=== PATIENT | male | born 1965 | race American Indian/Alaskan Native ===

== ENCOUNTER 2018-01-10 17:32 | Emergency (ER) | payer SELFPAY ==
[2018-01-10 18:26] LABS: Basophils % (Auto) 0.4 % (0.0-1.8); Eosinophils % (Auto) 0.2 % (0.0-4.3); Hematocrit 44.4 % (35.5-45.6); Hemoglobin 15.3 gm/dl (11.8-15.2); Lymphocytes % (Auto) 22.2 % (13.4-35.0); Mean Corpuscular HGB Conc 35 % (32-34); Mean Corpuscular Hemoglobin 33 pg (28-32); Mean Corpuscular Volume 97 fl (84-94); Monocytes # (Auto) 0.6 K/mm3 (0.0-0.8); Monocytes % (Auto) 6.7 % (0.0-7.3); Platelet Count 235 K/mm3 (140-440); Red Blood Count 4.59 M/mm3 (3.65-5.03); Red Cell Distribution Width 13.2 % (13.2-15.2)
[2018-01-10 18:45] LABS: BUN/Creatinine Ratio 8; Blood Urea Nitrogen 10 mg/dL (9-20); Calcium 9.7 mg/dL (8.4-10.2); Hemolysis Index 8
[2018-01-10 18:59] LABS: Bilirubin,Urine NEG (Negative); Blood,Urine NEG (Negative); Color,Urine Amber (Yellow); Hyaline Casts,Urine 33 /LPF; Mucus,Urine 3+ /HPF
[2018-01-10 19:00] LABS: Amphetamine Screen,Urine PRESUMPTIVE NEGATIVE; Benzodiazepines Screen,Urine PRESUMPTIVE NEGATIVE; Methadone Screen,Urine PRESUMPTIVE NEGATIVE
[2018-01-10 19:16] LABS: Cannabinoid Screen,Urine PRESUMPTIVE POSITIVE; Cocaine Screen,Urine PRESUMPTIVE POSITIVE; Opiate Screen,Urine PRESUMPTIVE POSITIVE
--- NOTE | 2018-01-10 23:28 | Emergency Department Report ---
HPI - General Chief Complaint: Psych Time Seen by Provider: 01/10/18 21:29 - HPI HPI: 52-year-old -Cam[place] male presents to the emergency department with complaint of feeling depressed after allegedly relapsing by snorting heroin. Patient also admits to using a small amount of cocaine but says that is not usually his drug of choice. He denies any current intoxication. He is looking for rehabilitation and/or detox. He says that he feels that if he does not get help that he will end up dying from his drug use and says "I want to get my life back together." The patient does endorse suicidal ideations. While he does not have any one specific plan, he has verbalized the idea of overdosing on drugs or jumping in front of a train. He denies any homicidal ideations or any hallucinations. ED Past Medical Hx - Past Medical History Previous Medical History?: Yes Hx Liver Disease: Yes (hep C) - Surgical History Past Surgical History?: Yes Additional Surgical History: Knee surgery, right femur surgery, liver biopsy, hemorrhoid surgery (summer) - Social History Smoking Status: Current Every Day Smoker Substance Use Type: Heroin, Marijuana - Medications Home Medications: Home Medications Medication Instructions Recorded Confirmed Last Taken Type Cyclobenzaprine [Flexeril 10mg] 10 mg PO TID PRN #14 tablet 02/12/14 Unknown Rx HYDROcodone/APAP 5-325 [[place] 1 - 2 each PO Q6HR PRN #20 tablet 02/12/14 Unknown Rx 5/325] Nitrofurantoin Toole/M-Cryst 100 mg PO BID #14 capsule 01/11/18 Unknown Rx [Macrobid CAP] ED Review of Systems ROS: Stated complaint: WITHDRAWL/SUICIDAL Other details as noted in HPI Comment: All other systems reviewed and negative Constitutional: denies: chills, fever Eyes: denies: eye pain, eye discharge, vision change ENT: denies: ear pain, throat pain Respiratory: denies: cough, shortness of breath, wheezing Cardiovascular: denies: chest pain, palpitations Gastrointestinal: denies: abdominal pain, nausea, diarrhea Genitourinary: denies: urgency, dysuria Musculoskeletal: denies: back pain, joint swelling, arthralgia Skin: denies: rash, lesions Neurological: denies: headache, weakness, paresthesias Psychiatric: depression. denies: auditory hallucinations, visual hallucinations Physical Exam - Physical Exam Vital Signs: Vital Signs 01/10/18 17:47 Temperature 99.3 F Pulse Rate 102 H Respiratory 16 Rate Blood Pressure 116/72 Physical Exam: GENERAL: The patient is well-developed well-nourished. HENT: Normocephalic. Atraumatic. Patient has moist mucous membranes. EYES: Extraocular motions are intact. Pupils equal reactive to light bilaterally. NECK: Supple. Trachea is midline. CHEST/LUNGS: Clear to auscultation. There is no respiratory distress noted. HEART/CARDIOVASCULAR: Regular. There is no tachycardia. There is no murmur. ABDOMEN: Abdomen is soft, nontender. Patient has normal bowel sounds. There is no abdominal distention. SKIN: Skin is warm and dry. NEURO: The patient is awake, alert, and oriented. The patient is cooperative. The patient has no focal neurologic deficits. The patient has normal speech. MUSCULOSKELETAL: There is no tenderness or deformity. There is no limitation range of motion. There is no evidence of acute injury. ED Course Vital Signs 01/10/18 17:47 Temperature 99.3 F Pulse Rate 102 H Respiratory 16 Rate Blood Pressure 116/72 ED Medical Decision Making - Lab Data Result diagrams: 01/10/18 18:10 01/10/18 18:10 - Medical Decision Making Patient presents with a complaint of some depression secondary to his illicit drug use that is causing him to have some suicidal ideations. He lasted heroin and cocaine last night and says that he has a history of snorting heroin. Patient is looking for some detox and rehabilitation. He does endorse the suicidal ideations. He previously mentioned some plans as to how he would harm himself but at the current time he just reiterates that he has them. In the emergency department the patient is calm and appropriate. Labs are mostly unremarkable except for a urine drug screen that is positive for opiates and cocaine and a urinalysis that shows a urinary tract infection. Patient will be started on Macrobid. Vital signs stable throughout his ED course. Patient has been made a 1013 secondary to the suicidal ideations. He has been seen by the psych assessment team who agrees with the plan for a 1013 and inpatient psychiatric treatment. Patient is medically cleared for psychiatric placement. - Differential Diagnosis substance abuse, withdrawal, UTI, depression, bipolar disorder Critical Care Time: No Critical care attestation.: If time is entered above; I have spent that time in minutes in the direct care of this critically ill patient, excluding procedure time. ED Disposition Clinical Impression: Suicidal ideations, Polysubstance abuse UTI (urinary tract infection) Qualifiers: Urinary tract infection type: acute cystitis Hematuria presence: without hematuria Qualified Code(s): N30.00 - Acute cystitis without hematuria Opiate dependence Qualifiers: Substance use status: uncomplicated Qualified Code(s): F11.20 - Opioid dependence, uncomplicated Disposition: DC/TX-65 PSY HOSP/PSY UNIT Is pt being admited?: No Condition: Stable Instructions: Suicide Prevention for Adults (ED), Urinary Tract Infection in Men (ED), Narcotic Abuse (ED) Prescriptions: Nitrofurantoin Toole/M-Cryst [Macrobid CAP] 100 mg PO BID #14 capsule Referrals: PRIMARY CARE, [Primary Care Provider] - 3-5 Days Time of Disposition: 01:11
[2018-01-11] MEDS: MACROBID PO SCH ×3 (04:55→22:32)
[2018-01-11] MEDS ORDERED: ZOFRAN ODT PO PRN (11:42)
--- NOTE | 2018-01-11 15:36 | Consultation ---
History of Present Illness - Reason for Consult Consult date: 01/11/18 Reason for consult: Mental Health Evaluation Requesting physician: LENNY MOROCHO - Chief Complaint Chief complaint: I am depressed" - History of Present Psychiatric Illness 52-year-old -Italian male presents to the emergency department with complaint of feeling depressed after allegedly relapsing by snorting heroin. Today the patient is calm and cooperative, but withdrawn during the assessment. He stated that he need to stop using "drugs" and get his life together. He stated being suicidal for several days since binging on heroin and other recreational drugs. He stated that he last used heroin yesterday. He stated that he has a hx of depression and take Zoloft. He admitted being noncompliant with taking Zoloft when asked. He stated that he have been to several rehab services, but relapse most of the time. He endorses SI's, but will not confirm or deny a suicide plan. He rate his depression 6/10, with 10 being the worse. He denies erratic sleep, a poor appetite, and manice episodes in the past. He denies alcohol consumption (etoh), Medications and Allergies Allergies Allergy/AdvReac Type Severity Reaction Status Date / Time No Known Allergies Allergy Unverified 02/12/14 14:01 Home Medications Medication Instructions Recorded Confirmed Last Taken Type No Known Home Medications [No 01/11/18 01/11/18 Unknown History Reported Home Medications] Active Meds: Active Medications Nitrofurantoin Macrocrystals (Macrobid) 100 mg PO BID RAMU Last Admin: 01/11/18 10:00 Dose: 100 mg Ondansetron HCl (Zofran Odt) 4 mg PO Q6HR PRN PRN Reason: Nausea Last Admin: 01/11/18 12:06 Dose: 4 mg Mental Status Exam - Vital signs Last Vital Signs Temp 97.9 F 01/11/18 08:00 Pulse 64 01/11/18 08:00 Resp 20 01/11/18 08:00 BP 148/81 01/11/18 08:00 Pulse Ox 97 01/11/18 08:00 - Exam Narrative exam: MSE: Appearance: calm, cooperative Behavior: regular eye contact Speech: regular rate and tone Mood: "depressed" withdrawn Affect: flat Thought Process: circumstantial Thought Content: denies HI's and AVH's Motor Activity: lying in bed Cognition: A/O x 3 Insight: variable Judgment: poor Results Result Diagrams: 01/10/18 18:10 01/10/18 18:10 Abnormal lab results 01/10/18 01/10/18 01/10/18 Range/Units 18:10 18:10 18:10 Hgb 15.3 H (11.8-15.2) gm/dl MCV 97 H (84-94) fl MCH 33 H (28-32) pg MCHC 35 H (32-34) % Seg Neutrophils % 70.5 H (40.0-70.0) % Urine WBC (Auto) (0.0-6.0) /HPF Salicylates < 0.3 L (2.8-20.0) mg/dL Acetaminophen < 5.0 L (10.0-30.0) ug/mL 01/10/18 Range/Units 18:12 Hgb (11.8-15.2) gm/dl MCV (84-94) fl MCH (28-32) pg MCHC (32-34) % Seg Neutrophils % (40.0-70.0) % Urine WBC (Auto) 36.0 H (0.0-6.0) /HPF Salicylates (2.8-20.0) mg/dL Acetaminophen (10.0-30.0) ug/mL All other labs normal. Assessment and Plan Assessment and plan: Impression: MDD, Severe type. Substance Use DO (cocaine). Cannabis Use DO. Opioid Use DO. Today the patient is calm and cooperative, but withdrawn during the assessment. The patient complains of nausea (opioid withdrawals) DDx: R/O Bipolar DO, R/O Substance Induced Mood DO Recommendation/Plan: Continue 1013 with placement to inpatient psy services. Start Zoloft 50 mg PO daily for depression. Discussed possible suicidality/ medication induced darien with patient reference Zoloft. Discussed the importance to abstain from recreational drug use. Continue to monitor for opioid withdrawals.
[2018-01-11] MEDS ORDERED: TYLENOL PO ONE (19:40)
[2018-01-11] MEDS ORDERED: TYLENOL ONE (19:43)
[2018-01-11] MEDS: ZOLOFT PO SCH (19:50)
[2018-01-12] MEDS: MACROBID PO SCH ×2 (12:05→23:35)
[2018-01-12] MEDS: ZOLOFT PO SCH (12:06)
--- NOTE | 2018-01-12 15:54 | Progress Note ---
Subjective - Reason for Consult Consult date: 01/12/18 Reason for consult: Psychiatric Follow-up Evaluation - Chief Complaint Chief complaint: " I feel great" Patient is a 52-year-old -Bulgar[place] male who presents to the emergency department with complaint of feeling depressed after allegedly relapsing by snorting heroin. Today, patient is calm and cooperative during the assessment. He endorses depressed mood related to recent relapse. He reports good sleep and appetite. Patient is medication compliant. He denies SI/HI, A/VH, and delusions. Mental Status Exam - Vital signs Last Vital Signs Temp 98.9 F 01/12/18 10:35 Pulse 60 01/12/18 10:35 Resp 18 01/12/18 10:35 BP 134/84 01/12/18 10:35 Pulse Ox 97 01/12/18 10:35 - Exam Narrative exam: Mental Status Exam General Appearance: Causally Dressed-hospital gown Eye Contact: Intermittent Orientation: Alert and oriented x 4 ( person, place, time, and situation) Attitude/Behavior: Cooperative but somewhat guarded Sensorium: Distracted Psychomotor & Musculoskeletal Activity: Ambulatory Mood: "Great." Per provider depressed, anxious Affect: Appropriate Speech/Language: Normal rate and tone Thought Processes: Organized, circumstantial Thought Content: Reality oriented; patient denies delusions Perception: WNL-patient denies A/V/T hallucinations Concentration/Attention: Impaired Suicidal Ideations/Plan: Patient denies Homicidal Ideations/Plan: Patient denies Judgment: Variable Insight: Variable Assessment and Plan Impression: MDD, Severe type. Substance Use DO (cocaine). Cannabis Use DO. Opioid Use DO. Today the patient is calm and cooperative, but guarded during the assessment. He denies SI/HI's, A/VH's, delusions, withdrawal symptoms, and cravings. DDx: R/O Bipolar DO, R/O Substance Induced Mood DO Recommendation/Plan: 1. Continue 1013 with placement to inpatient psychiatric services. 2. Continue Zoloft 50 mg PO daily for depression. Discussed possible suicidality/medication induced darien with patient reference Zoloft. Discussed the importance to abstain from recreational drug use. Continue to monitor for opioid withdrawals. 3. Will continue to monitor mood, sleep, appetite, compliance, and side effects.
[2018-01-13] MEDS: ZOLOFT PO SCH (10:49)
[2018-01-13] MEDS: MACROBID PO SCH (10:49)
--- NOTE | 2018-01-13 11:14 | Progress Note ---
Subjective - Reason for Consult Consult date: 01/13/18 Reason for consult: Psychiatry Follow-up - Chief Complaint Chief complaint: I've done a lot of reflecting" 52-year-old -Guine[place] male presents to the emergency department with complaint of feeling depressed after allegedly relapsing by snorting heroin. Today the patient is calm and cooperative during the assessment. He stated reflecting about his life. He stated that he must make better decisions. He stated that he plan to follow up with outpatient psy/rehab services when discharged. He denies SI/HI's and AVH's. He denies any side effects of his medication. Mental Status Exam - Vital signs Last Vital Signs Temp 99.4 F 01/12/18 20:00 Pulse 78 01/12/18 20:00 Resp 18 01/12/18 20:00 BP 144/96 01/12/18 20:00 Pulse Ox 98 01/12/18 20:00 - Exam Narrative exam: MSE: Appearance: calm, cooperative Behavior: regular eye contact Speech: regular rate and tone Mood: "much better" Affect: congruent to mood Thought Process: linear Thought Content: denies SI/HI's and AVH's Motor Activity: lying in bed Cognition: A/O x 3 Insight: appropriate Judgment: appropriate Assessment and Plan Impression: MDD, Severe type. Substance Use DO (cocaine). Cannabis Use DO. Opioid Use DO. Today the patient is calm and cooperative during the assessment. The patient is no threat to self. The patient denies withdrawals (opioid). DDx: R/O Bipolar DO, R/O Substance Induced Mood DO Recommendation/Plan: Rescind 1013. Continue Zoloft 50 mg PO daily for depression. Discussed possible suicidality/medication induced darien with patient reference Zoloft. Discussed the importance to abstain from recreational drug use. The patient can follow up with [facility] for outpatient psy/ rehab services.
[2018-01-13 11:17] VITALS: BP 144/92
--- NOTE | 2018-01-13 12:57 | Event Note ---
Date: 01/13/18 The patient's 1013 has been discontinued by the psychiatry team. He endorses no acute medical complaints at this time. He is afebrile with reassuring vital signs and is clinically sober at this time. He will be given a 10 day refill on Zoloft. He is instructed to follow up with outpatient mental health resources. Vital Signs 01/10/18 01/11/18 01/11/18 17:47 08:00 20:31 Temperature 99.3 F 97.9 F 99.5 F Pulse Rate 102 H 64 67 Respiratory 16 20 11 L Rate Blood Pressure 116/72 Blood Pressure 148/81 143/92 [Right] O2 Sat by Pulse 97 97 Oximetry 01/12/18 01/12/18 01/13/18 10:35 20:00 10:00 Temperature 98.9 F 99.4 F 97.3 F L Pulse Rate 60 78 84 Respiratory 18 18 20 Rate Blood Pressure Blood Pressure 134/84 144/96 144/92 [Right] O2 Sat by Pulse 97 98 97 Oximetry Lab Results 01/10/18 01/10/18 01/10/18 Range/Units 18:10 18:10 18:10 WBC (4.5-11.0) K/mm3 RBC (3.65-5.03) M/mm3 Hgb (11.8-15.2) gm/dl Hct (35.5-45.6) % MCV (84-94) fl MCH (28-32) pg MCHC (32-34) % RDW (13.2-15.2) % Plt Count (140-440) K/mm3 Lymph % (Auto) (13.4-35.0) % [place] % (Auto) (0.0-7.3) % Eos % (Auto) (0.0-4.3) % Baso % (Auto) (0.0-1.8) % Lymph # (1.2-5.4) K/mm3 [place] # (0.0-0.8) K/mm3 Eos # (0.0-0.4) K/mm3 Baso # (0.0-0.1) K/mm3 Seg Neutrophils % (40.0-70.0) % Seg Neutrophils # (1.8-7.7) K/mm3 Sodium 140 (137-145) mmol/L Potassium 3.9 (3.6-5.0) mmol/L Chloride 98.3 (98-107) mmol/L Carbon Dioxide 26 (22-30) mmol/L Anion Gap 20 mmol/L BUN 10 (9-20) mg/dL Creatinine 1.3 (0.8-1.5) mg/dL Estimated GFR > 60 ml/min BUN/Creatinine Ratio 8 % Glucose 85 (75-100) mg/dL Calcium 9.7 (8.4-10.2) mg/dL Urine Color (Yellow) Urine Turbidity (Clear) Urine pH (5.0-7.0) Ur Specific [place] (1.003-1.030) Urine Protein (Negative) mg/dL Urine Glucose (UA) (Negative) mg/dL Urine Ketones (Negative) mg/dL Urine Blood (Negative) Urine Nitrite (Negative) Urine Bilirubin (Negative) Urine Urobilinogen (<2.0) mg/dL Ur Leukocyte Esterase (Negative) Urine WBC (Auto) (0.0-6.0) /HPF Urine RBC (Auto) (0.0-6.0) /HPF U Epithel Cells (Auto) (0-13.0) /HPF Hyaline Casts /LPF Urine Mucus /HPF Salicylates < 0.3 L (2.8-20.0) mg/dL Urine Opiates Screen Urine Methadone Screen Acetaminophen < 5.0 L (10.0-30.0) ug/mL Ur Barbiturates Screen Ur Phencyclidine Scrn Ur Amphetamines Screen U Benzodiazepines Scrn Urine Cocaine Screen U Marijuana (THC) Screen Drugs of Abuse Note Plasma/Serum Alcohol (0-0.07) % 01/10/18 01/10/18 01/10/18 Range/Units 18:10 18:10 18:12 WBC 9.0 (4.5-11.0) K/mm3 RBC 4.59 (3.65-5.03) M/mm3 Hgb 15.3 H (11.8-15.2) gm/dl Hct 44.4 (35.5-45.6) % MCV 97 H (84-94) fl MCH 33 H (28-32) pg MCHC 35 H (32-34) % RDW 13.2 (13.2-15.2) % Plt Count 235 (140-440) K/mm3 Lymph % (Auto) 22.2 (13.4-35.0) % [place] % (Auto) 6.7 (0.0-7.3) % Eos % (Auto) 0.2 (0.0-4.3) % Baso % (Auto) 0.4 (0.0-1.8) % Lymph # 2.0 (1.2-5.4) K/mm3 [place] # 0.6 (0.0-0.8) K/mm3 Eos # 0.0 (0.0-0.4) K/mm3 Baso # 0.0 (0.0-0.1) K/mm3 Seg Neutrophils % 70.5 H (40.0-70.0) % Seg Neutrophils # 6.4 (1.8-7.7) K/mm3 Sodium (137-145) mmol/L Potassium (3.6-5.0) mmol/L Chloride (98-107) mmol/L Carbon Dioxide (22-30) mmol/L Anion Gap mmol/L BUN (9-20) mg/dL Creatinine (0.8-1.5) mg/dL Estimated GFR ml/min BUN/Creatinine Ratio % Glucose (75-100) mg/dL Calcium (8.4-10.2) mg/dL Urine Color [place] (Yellow) Urine Turbidity Cloudy (Clear) Urine pH 5.0 (5.0-7.0) Ur Specific [place] 1.026 (1.003-1.030) Urine Protein 100 mg/dl (Negative) mg/dL Urine Glucose (UA) Neg (Negative) mg/dL Urine Ketones Tr (Negative) mg/dL Urine Blood Neg (Negative) Urine Nitrite Neg (Negative) Urine Bilirubin Neg (Negative) Urine Urobilinogen 2.0 (<2.0) mg/dL Ur Leukocyte Esterase Mod (Negative) Urine WBC (Auto) 36.0 H (0.0-6.0) /HPF Urine RBC (Auto) 3.0 (0.0-6.0) /HPF U Epithel Cells (Auto) 2.0 (0-13.0) /HPF Hyaline Casts 33 /LPF Urine Mucus 3+ /HPF Salicylates (2.8-20.0) mg/dL Urine Opiates Screen Urine Methadone Screen Acetaminophen (10.0-30.0) ug/mL Ur Barbiturates Screen Ur Phencyclidine Scrn Ur Amphetamines Screen U Benzodiazepines Scrn Urine Cocaine Screen U Marijuana (THC) Screen Drugs of Abuse Note Plasma/Serum Alcohol < 0.01 (0-0.07) % 01/10/18 Range/Units 18:12 WBC (4.5-11.0) K/mm3 RBC (3.65-5.03) M/mm3 Hgb (11.8-15.2) gm/dl Hct (35.5-45.6) % MCV (84-94) fl MCH (28-32) pg MCHC (32-34) % RDW (13.2-15.2) % Plt Count (140-440) K/mm3 Lymph % (Auto) (13.4-35.0) % [place] % (Auto) (0.0-7.3) % Eos % (Auto) (0.0-4.3) % Baso % (Auto) (0.0-1.8) % Lymph # (1.2-5.4) K/mm3 [place] # (0.0-0.8) K/mm3 Eos # (0.0-0.4) K/mm3 Baso # (0.0-0.1) K/mm3 Seg Neutrophils % (40.0-70.0) % Seg Neutrophils # (1.8-7.7) K/mm3 Sodium (137-145) mmol/L Potassium (3.6-5.0) mmol/L Chloride (98-107) mmol/L Carbon Dioxide (22-30) mmol/L Anion Gap mmol/L BUN (9-20) mg/dL Creatinine (0.8-1.5) mg/dL Estimated GFR ml/min BUN/Creatinine Ratio % Glucose (75-100) mg/dL Calcium (8.4-10.2) mg/dL Urine Color (Yellow) Urine Turbidity (Clear) Urine pH (5.0-7.0) Ur Specific [place] (1.003-1.030) Urine Protein (Negative) mg/dL Urine Glucose (UA) (Negative) mg/dL Urine Ketones (Negative) mg/dL Urine Blood (Negative) Urine Nitrite (Negative) Urine Bilirubin (Negative) Urine Urobilinogen (<2.0) mg/dL Ur Leukocyte Esterase (Negative) Urine WBC (Auto) (0.0-6.0) /HPF Urine RBC (Auto) (0.0-6.0) /HPF U Epithel Cells (Auto) (0-13.0) /HPF Hyaline Casts /LPF Urine Mucus /HPF Salicylates (2.8-20.0) mg/dL Urine Opiates Screen Presumptive positive Urine Methadone Screen Presumptive negative Acetaminophen (10.0-30.0) ug/mL Ur Barbiturates Screen Presumptive negative Ur Phencyclidine Scrn Presumptive negative Ur Amphetamines Screen Presumptive negative U Benzodiazepines Scrn Presumptive negative Urine Cocaine Screen Presumptive positive U Marijuana (THC) Screen Presumptive positive Drugs of Abuse Note Disclamer Plasma/Serum Alcohol (0-0.07) %
== END 2018-01-13 14:30 | disposition home or self-care (01) ==
LOC: ED 17:32 → EEVIPCON 17:32 → ED 01-13 14:30
DX: R45.851 Suicidal ideations (principal); N30.00 Acute cystitis without hematuria; F11.20 Opioid dependence, uncomplicated; F14.10 Cocaine abuse, uncomplicated; F17.200 Nicotine dependence, unspecified, uncomplicated; F12.10 Cannabis abuse, uncomplicated
CPT/HCPCS: 36415; 80048; 80307; 81001; 85025; 99284; G0480; 80320; Q0162